=== PATIENT | male | born 1995 | race Caucasian/White ===

== ENCOUNTER 2016-11-14 14:01 | Emergency (ER) | payer SELFPAY ==
[~2016-11-14] VITALS: Ht 154.9 cm; Wt 77.1 kg
[~2016-11-14 14:01] MED LIST: ALBUTEROL0.09 MG/A2 IH; AMOXICILLIN500 M2 PO; CLEOCIN150 MG PO; CLINDAMYCIN HC300 MG PO; CYCLOBENZAPRINE10 MG PO; MOTRIN800 MG PO; Motrin,Rufen800 MG PO; NAPROSYN500 MG PO; NORFLEX100 MG PO; PHENERGAN W/DM120 ML PO; SUDAFED60 MG PO; ULTRAM50 MG PO; ZITHROMAX250 MG PO; Zofran4 MG PO
[2016-11-14 14:26] VITALS: BP 118/80
[2016-11-14] MEDS ORDERED: CLINDAMYCIN HC300 MG PO (15:37)
== END 2016-11-14 15:40 | disposition home or self-care (01) ==
LOC: ED 14:01
DX: K02.9 Dental caries, unspecified (principal); F17.200 Nicotine dependence, unspecified, uncomplicated; Z91.030 Bee allergy status

== ENCOUNTER 2017-03-04 02:05 | Emergency (ER) | payer OTHER ==
[~2017-03-04] VITALS: Wt 81.6 kg
[2017-03-04 02:11] VITALS: BP 154/87
[2017-03-04] MEDS ORDERED: NORCO 5-325 TA1 EACH PO (03:15)
[2017-03-04] MEDS ORDERED: CLINDAMYCIN HC300 MG PO (03:15)
== END 2017-03-04 03:29 | disposition home or self-care (01) ==
LOC: ED 02:05
DX: K04.01 Reversible pulpitis (principal); K02.9 Dental caries, unspecified; F17.200 Nicotine dependence, unspecified, uncomplicated; Z91.030 Bee allergy status

== ENCOUNTER 2017-06-26 22:53 | Emergency (ER) | payer OTHER ==
[~2017-06-26] VITALS: Ht 180.3 cm; Wt 79.4 kg
[~2017-06-26 22:53] MED LIST changes: +NORCO 5-325 TA1 EACH PO
[2017-06-26 22:58] VITALS: BP 122/72
[2017-06-26] MEDS ORDERED: CEFADROXIL500 M1 PO (23:05)
== END 2017-06-27 00:18 | disposition home or self-care (01) ==
LOC: ED 22:53
DX: S61.214A Laceration without foreign body of right ring finger without damage to nail, initial encounter (principal); F17.200 Nicotine dependence, unspecified, uncomplicated; Z91.030 Bee allergy status; W45.8XXA Other foreign body or object entering through skin, initial encounter; Y93.89 Activity, other specified; Y92.69 Other specified industrial and construction area as the place of occurrence of the external cause; Y99.9 Unspecified external cause status

== ENCOUNTER 2018-07-10 08:32 | Emergency (ER) | payer MEDICAID ==
[~2018-07-10] VITALS: Ht 180.3 cm; Wt 77.1 kg
--- NOTE | ~2018-07-10 | EKG ---
[place] ELECTROCARDIOGRAM REPORT NAME: BAHMAN HULL JR UNIT #: [id number] ROOM: DOCTOR: EPIPHANY DRAFT REPORT BIRTHDATE: [birth year] [facility] Test Date: 2018-07-10 Test Time: 08:33:37 Pat Name: BAHMAN HULL Department: Room: Gender: [employer] Instructor: : 1995 Requested By: EDWAR DHALIWAL Order Number: [id number] Reading MD: Josef Velázquez MD Measurements Intervals Celeste Rate: 79 P: 46 PA: 172 QRS: 93 QRSD: 95 T: 61 QT: 360 QTc: 413 Interpretive Statements Sinus rhythm Borderline right axis deviation ST elev, probable normal early repol pattern Compared to ECG 11/19/2017 21:00:10 No significant changes Electronically Signed On 07-16-2018 4:12:06 PDT by Josef Velázquez MD CM:EKGRPT:ELECTROCARDIOGRAM REPORT [id number] EDWAR HICKS DRAFT REPORT EDWAR DHALIWAL M.D.
[~2018-07-10 08:32] MED LIST changes: +CEFADROXIL500 M1 PO; +ZOFRAN4 MG PO
[2018-07-10 08:52] LABS: BASO # 0.1 10*3/uL (0.0-0.1); BASO % 0.6 % (0.0-1.0); EOS # 0.5 10*3/uL (0.0-0.4); EOS % 5.5 % (1.0-4.0); HEMATOCRIT 45.3 % (42.0-52.0); HEMOGLOBIN 15.5 g/dl (14.0-18.0); LYMPH # 2.1 10*3/uL (1.3-4.4); LYMPH % 24.2 % (27.0-41.0); MEAN CELL VOLUME 87.8 fl (80.0-94.0); MEAN CORPUSCULAR HGB CONC 34.2 g/dl (33.0-37.0); MEAN PLATELET VOLUME 9.3 fl (9.6-12.3); MONO # 0.9 10*3/uL (0.1-1.0); MONO % 10.3 % (3.0-9.0); NEUT # 5.1 10*3/uL (2.3-7.9); NEUT % 58.9 % (47.0-73.0); PLATELET COUNT AUTOMATED 292 10*3/uL (130-400); RED BLOOD COUNT 5.16 10*6/uL (4.50-5.90); RED CELL DISTRI WIDTH 12.3 % (0-14.5); WHITE BLOOD COUNT 8.6 10*3/uL (4.8-10.8)
[2018-07-10 09:07] LABS: ACT PARTIAL THROMBO TIME 27.5 SECONDS (20.0-32.1)
[2018-07-10 09:09] LABS: ALBUMIN 4.2 gm/dl (3.1-4.5); ALKALINE PHOSPHATASE 57 U/L (45-117); BUN 15 mg/dl (7-24); CHLORIDE 104 mmol/L (98-107); POTASSIUM 3.9 mmol/L (3.5-5.1); SGOT/AST 16 IU/L (3-35); SGPT/ALT 33 U/L (12-78); SODIUM 141 mmol/L (136-145); TOTAL PROTEIN 7.4 gm/dL (6.4-8.2)
[2018-07-10 09:10] LABS: TROPONIN I < 0.015 ng/ml (<0.045)
[2018-07-10 09:54] VITALS: BP 126/74
[2018-07-10] MEDS ORDERED: Motrin,Rufen800 MG PO (10:13)
== END 2018-07-10 10:19 | disposition home or self-care (01) ==
LOC: ED 08:32
PROVIDERS: Emergency Medicine
DX: M94.0 Chondrocostal junction syndrome [Tietze] (principal); F17.200 Nicotine dependence, unspecified, uncomplicated; Z91.030 Bee allergy status